=== PATIENT | female | born 1990 | race Two or more races ===

== ENCOUNTER 2023-03-04 14:27 | Emergency (ER) | payer OTHER ==
[~2023-03-04] VITALS: Ht 152.4 cm; Wt 67.1 kg
[2023-03-04] MEDS ORDERED: PRENATAL + DHA1 EAC1 PO (14:49)
[2023-03-04] MEDS ORDERED: ZOFRAN8 MG PO ×2 (14:49→20:53)
[2023-03-04] MEDS ORDERED: DUI500 PO (20:54)
== END 2023-03-04 21:01 | disposition home or self-care (01) ==
LOC: ER 14:27
DX: O21.9 Vomiting of pregnancy, unspecified (principal); O23.41 Unspecified infection of urinary tract in pregnancy, first trimester; N39.0 Urinary tract infection, site not specified; Z3A.11 11 weeks gestation of pregnancy

== ENCOUNTER 2023-08-08 13:57 | Emergency (ER) | payer OTHER ==
[~2023-08-08] VITALS: Ht 154.9 cm; Wt 71.7 kg
[~2023-08-08 13:57] MED LIST: DUI500 PO; PRENATAL + DHA1 EAC1 PO; ZOFRAN8 MG PO
[2023-08-08] MEDS ORDERED: OBSTETRIX ONE1 EAC1 (15:37)
[2023-08-08 17:50] LABS: HEMATOCRIT 30.3 % (36.0-45.00); HEMOGLOBIN 10.2 g/dL (12.0-15.00); MEAN CELL VOLUME 87.4 fL (80.00-100.00); MEAN CORPUSCULAR HEMOGLOBIN 29.5 pg (27.00-32.0); MEAN CORPUSCULAR HGB CONC 33.8 g/dl (32.0-36.0); PLATELET COUNT 244 K/uL (150-450); RED BLOOD COUNT 3.46 M/uL (4.00-6.00); RED CELL DISTRIBUTION WIDTH 15.1 % (11.5-14.5)
[2023-08-08 17:51] LABS: PH,URINE 6.5 (5.0-8.0); URINE APPEARANCE Clear; URINE BILIRRUBIN Negative (NEGATIVE); URINE BLOOD Trace; URINE COLOR Yellow; URINE GLUCOSE Negative (NEGATIVE); URINE LEUKOCYTE Negative; URINE NITRATE Negative; URINE UROBILINOGEN 0.2 E.U./dl
[2023-08-08 17:56] LABS: URINE BACTERIA 2300.4 uL (0.0-1933); URINE EPITHELIAL CELLS 35.2 uL (0.0-38.8); URINE PROTEIN 300 (NEGATIVE); URINE RBC 17.3 uL (0.0-20.8); URINE WBC 52.2 uL (0.0-23.2)
[2023-08-08] MEDS ORDERED: SALINE NASAL SP88 ML NASAL (20:21)
== END 2023-08-08 20:42 | disposition home or self-care (01) ==
LOC: ER 13:58
PROVIDERS: Nurse Practitioner Family
DX: R11.10 Vomiting, unspecified (principal); J06.9 Acute upper respiratory infection, unspecified; Z20.822 Contact with and (suspected) exposure to COVID-19; Z88.8 Allergy status to other drugs, medicaments and biological substances

== ENCOUNTER 2023-08-12 16:11 | Inpatient (IN) | payer OTHER ==
[~2023-08-12] VITALS: Ht 154.9 cm; Wt 71.7 kg
[~2023-08-12 16:11] MED LIST changes: +OBSTETRIX ONE1 EAC1; +SALINE NASAL SP88 ML NASAL
[2023-08-12] MEDS ORDERED: PRENATAL TABLE1 EAC4 PO (17:06)
[2023-08-12 17:17] LABS: PH,URINE 6.5 (5.0-8.0); URINE APPEARANCE Clear; URINE BILIRRUBIN Negative (NEGATIVE); URINE BLOOD Trace; URINE COLOR Yellow; URINE GLUCOSE Negative (NEGATIVE); URINE LEUKOCYTE Trace; URINE NITRATE Negative
[2023-08-12 17:19] LABS: HEMATOCRIT 28.2 % (36.0-45.00); HEMOGLOBIN 9.4 g/dL (12.0-15.00); MEAN CELL VOLUME 86.9 fL (80.00-100.00); MEAN CORPUSCULAR HEMOGLOBIN 29.1 pg (27.00-32.0); MEAN CORPUSCULAR HGB CONC 33.5 g/dl (32.0-36.0); PLATELET COUNT 299 K/uL (150-450); RED BLOOD COUNT 3.24 M/uL (4.00-6.00); RED CELL DISTRIBUTION WIDTH 15.6 % (11.5-14.5)
[2023-08-12 17:20] LABS: URINE BACTERIA 2090.3 uL (0.0-1933); URINE EPITHELIAL CELLS 35.4 uL (0.0-38.8); URINE RBC 20.2 uL (0.0-20.8); URINE WBC 35.8 uL (0.0-23.2)
[2023-08-12 17:28] LABS: INR < 0.93; PARTIAL THROMBOPLASTIN TIME 34.9 SECONDS (22.0-34.0); PROTHROMBIN TIME 9.5 SECONDS (9.0-11.5)
[2023-08-12 17:32] LABS: ALBUMIN 1.8 gm/dL (3.4-5.0); BILIRUBIN TOTAL 0.19 mg/dL (0.3-1.2); CALCIUM 8.4 mg/dL (8.5-10.1); CREATININE SERUM 0.62 mg/dL (0.55-1.02); GFR 112.27; GLOBULINA 3.6 G/DL (2.4-3.5); POTASSIUM 3.95 mEq/L (3.5-5.1); TOTAL PROTEIN 5.4 gm/dL (6.4-8.2)
[2023-08-12 17:39] LABS: URINE PROTEIN 300 (NEGATIVE)
[2023-08-13 17:13] LABS: HEMATOCRIT 28.4 % (36.0-45.00); HEMOGLOBIN 9.6 g/dL (12.0-15.00); MEAN CELL VOLUME 85.9 fL (80.00-100.00); MEAN CORPUSCULAR HEMOGLOBIN 29.1 pg (27.00-32.0); MEAN CORPUSCULAR HGB CONC 33.9 g/dl (32.0-36.0); PLATELET COUNT 304 K/uL (150-450); RED BLOOD COUNT 3.31 M/uL (4.00-6.00); RED CELL DISTRIBUTION WIDTH 15.5 % (11.5-14.5)
[2023-08-13 17:20] LABS: CREATININE URINE 37.3 MG/DL; URINE PROT QUANT 24HR 245.8 MG/DL
[2023-08-13 17:29] LABS: ALBUMIN 1.6 gm/dL (3.4-5.0); BILIRUBIN TOTAL 0.16 mg/dL (0.3-1.2); CALCIUM 8.5 mg/dL (8.5-10.1); CREATININE SERUM 0.67 mg/dL (0.55-1.02); GFR 102.66; GLOBULINA 3.5 G/DL (2.4-3.5); POTASSIUM 4.28 mEq/L (3.5-5.1); TOTAL PROTEIN 5.1 gm/dL (6.4-8.2)
[2023-08-13 17:48] LABS: URINE PROT QUANT 24 HR 6882.4 MG/24HR (42-225)
[2023-08-13 17:51] LABS: INR < 0.93; PARTIAL THROMBOPLASTIN TIME 35.5 SECONDS (22.0-34.0); PROTHROMBIN TIME 9.5 SECONDS (9.0-11.5)
[2023-08-13 17:57] LABS: FIBRINOGEN 831 mg/dL (187.0-446.0)
[2023-08-13 17:58] LABS: CREATINE CLEARANCE 108.5 ML/MIN (97-137); CREATININE SERUM 0.67 mg/dL (0.6-1.0)
[2023-08-14 17:49] LABS: HEMATOCRIT 30.3 % (36.0-45.00); HEMOGLOBIN 9.9 g/dL (12.0-15.00); MEAN CELL VOLUME 85.9 fL (80.00-100.00); MEAN CORPUSCULAR HEMOGLOBIN 28.1 pg (27.00-32.0); MEAN CORPUSCULAR HGB CONC 32.7 g/dl (32.0-36.0); PLATELET COUNT 395 K/uL (150-450); RED BLOOD COUNT 3.53 M/uL (4.00-6.00); RED CELL DISTRIBUTION WIDTH 16.1 % (11.5-14.5)
[2023-08-14 18:23] LABS: ALBUMIN 1.8 gm/dL (3.4-5.0); BILIRUBIN TOTAL 0.22 mg/dL (0.3-1.2); CALCIUM 7.4 mg/dL (8.5-10.1); CREATININE SERUM 0.58 mg/dL (0.55-1.02); GFR 121.25; POTASSIUM 4.32 mEq/L (3.5-5.1); TOTAL PROTEIN 5.8 gm/dL (6.4-8.2); URIC ACID 4.1 mg/dL (2.5-7.5)
[2023-08-14 18:27] LABS: MAGNESIUM 6.7 mg/dL (1.8-2.4)
[2023-08-14 19:18] LABS: D DIMER 1.15 MG/L
[2023-08-14 19:20] LABS: FIBRINOGEN > 860 mg/dL (187.0-446.0)
[2023-08-15 09:42] LABS: HEMATOCRIT 29.8 % (36.0-45.00); HEMOGLOBIN 9.9 g/dL (12.0-15.00); MEAN CELL VOLUME 86.1 fL (80.00-100.00); MEAN CORPUSCULAR HEMOGLOBIN 28.6 pg (27.00-32.0); MEAN CORPUSCULAR HGB CONC 33.3 g/dl (32.0-36.0); PLATELET COUNT 384 K/uL (150-450); RED BLOOD COUNT 3.46 M/uL (4.00-6.00)
[2023-08-15 10:05] LABS: ALBUMIN 1.8 gm/dL (3.4-5.0); BILIRUBIN TOTAL 0.18 mg/dL (0.3-1.2); CALCIUM 7.7 mg/dL (8.5-10.1); CREATININE SERUM 0.82 mg/dL (0.55-1.02); GFR 81.31; GLOBULINA 3.9 G/DL (2.4-3.5); POTASSIUM 4.36 mEq/L (3.5-5.1); TOTAL PROTEIN 5.7 gm/dL (6.4-8.2); URIC ACID 4.2 mg/dL (2.5-7.5)
[2023-08-16 06:22] LABS: INR < 0.93; PARTIAL THROMBOPLASTIN TIME 29.4 SECONDS (22.0-34.0)
[2023-08-16 06:26] LABS: HEMATOCRIT 26.6 % (36.0-45.00); MEAN CELL VOLUME 87.6 fL (80.00-100.00); MEAN CORPUSCULAR HEMOGLOBIN 29.6 pg (27.00-32.0); MEAN CORPUSCULAR HGB CONC 33.8 g/dl (32.0-36.0); PLATELET COUNT 380 K/uL (150-450); RED BLOOD COUNT 3.04 M/uL (4.00-6.00)
[2023-08-16 06:49] LABS: ALBUMIN 1.5 gm/dL (3.4-5.0); BILIRUBIN TOTAL 0.18 mg/dL (0.3-1.2); CALCIUM 7.7 mg/dL (8.5-10.1); CREATININE SERUM 0.6 mg/dL (0.55-1.02); GFR 116.6; GLOBULINA 3.4 G/DL (2.4-3.5); POTASSIUM 4.94 mEq/L (3.5-5.1); TOTAL PROTEIN 4.9 gm/dL (6.4-8.2)
[2023-08-16 12:21] LABS: HEMATOCRIT 25.2 % (36.0-45.00); MEAN CELL VOLUME 87.2 fL (80.00-100.00); MEAN CORPUSCULAR HGB CONC 33.3 g/dl (32.0-36.0); PLATELET COUNT 415 K/uL (150-450); RED BLOOD COUNT 2.89 M/uL (4.00-6.00)
[2023-08-16 12:32] LABS: HEMOGLOBIN 8.4 g/dL (12.0-15.00)
[2023-08-16 12:42] LABS: INR < 0.93; PARTIAL THROMBOPLASTIN TIME 29.2 SECONDS (22.0-34.0)
[2023-08-16 13:13] LABS: ALBUMIN 1.6 gm/dL (3.4-5.0); BILIRUBIN TOTAL 0.27 mg/dL (0.3-1.2); CALCIUM 7.3 mg/dL (8.5-10.1); CREATININE SERUM 0.67 mg/dL (0.55-1.02); GFR 102.66; GLOBULINA 3.3 G/DL (2.4-3.5); POTASSIUM 4.72 mEq/L (3.5-5.1); TOTAL PROTEIN 4.9 gm/dL (6.4-8.2)
[2023-08-16 13:21] LABS: MAGNESIUM 5.4 mg/dL (1.8-2.4)
[2023-08-16 18:17] LABS: MEAN CELL VOLUME 87.1 fL (80.00-100.00); MEAN CORPUSCULAR HGB CONC 33.9 g/dl (32.0-36.0); PLATELET COUNT 409 K/uL (150-450); RED BLOOD COUNT 2.51 M/uL (4.00-6.00)
[2023-08-16 18:18] LABS: MEAN CORPUSCULAR HEMOGLOBIN 29.4 pg (27.00-32.0)
[2023-08-16 18:19] LABS: HEMATOCRIT 21.8 % (36.0-45.00)
[2023-08-16 18:20] LABS: HEMOGLOBIN 7.4 g/dL (12.0-15.00)
[2023-08-16 18:42] LABS: INR < 0.93; PARTIAL THROMBOPLASTIN TIME 29.8 SECONDS (22.0-34.0); PROTHROMBIN TIME 8.9 SECONDS (9.0-11.5)
[2023-08-16 18:47] LABS: ALBUMIN 1.5 gm/dL (3.4-5.0); BILIRUBIN TOTAL 0.22 mg/dL (0.3-1.2); CALCIUM 6.8 mg/dL (8.5-10.1); CREATININE SERUM 0.61 mg/dL (0.55-1.02); GFR 114.4; GLOBULINA 3.2 G/DL (2.4-3.5); POTASSIUM 4.94 mEq/L (3.5-5.1); TOTAL PROTEIN 4.7 gm/dL (6.4-8.2)
[2023-08-16 18:57] LABS: MAGNESIUM 5.2 mg/dL (1.8-2.4)
[2023-08-17 07:40] LABS: INR < 0.93; PARTIAL THROMBOPLASTIN TIME 22.1 SECONDS (22.0-34.0); PROTHROMBIN TIME 9.5 SECONDS (9.0-11.5)
[2023-08-17 07:45] LABS: ALBUMIN 1.7 gm/dL (3.4-5.0); BILIRUBIN TOTAL 0.26 mg/dL (0.3-1.2); CALCIUM 7.4 mg/dL (8.5-10.1); CREATININE SERUM 0.65 mg/dL (0.55-1.02); GFR 106.31; GLOBULINA 3.3 G/DL (2.4-3.5); POTASSIUM 4.49 mEq/L (3.5-5.1)
[2023-08-17 08:16] LABS: HEMATOCRIT 29.9 % (36.0-45.00); HEMOGLOBIN 10.4 g/dL (12.0-15.00); MEAN CELL VOLUME 86.4 fL (80.00-100.00); MEAN CORPUSCULAR HGB CONC 34.8 g/dl (32.0-36.0); PLATELET COUNT 330 K/uL (150-450); RED BLOOD COUNT 3.46 M/uL (4.00-6.00)
[2023-08-18 05:56] LABS: HEMATOCRIT 25.5 % (36.0-45.00); MEAN CELL VOLUME 86.6 fL (80.00-100.00); MEAN CORPUSCULAR HEMOGLOBIN 30.2 pg (27.00-32.0); MEAN CORPUSCULAR HGB CONC 34.9 g/dl (32.0-36.0); PLATELET COUNT 321 K/uL (150-450); RED BLOOD COUNT 2.94 M/uL (4.00-6.00); RED CELL DISTRIBUTION WIDTH 15.2 % (11.5-14.5)
[2023-08-18 06:08] LABS: HEMOGLOBIN 8.9 g/dL (12.0-15.00)
[2023-08-18 06:42] LABS: ALBUMIN 1.6 gm/dL (3.4-5.0); BILIRUBIN TOTAL 0.18 mg/dL (0.3-1.2); CREATININE SERUM 0.63 mg/dL (0.55-1.02); GFR 110.22; POTASSIUM 4.07 mEq/L (3.5-5.1); TOTAL PROTEIN 4.6 gm/dL (6.4-8.2)
[2023-08-19 05:05] LABS: HEMATOCRIT 27.4 % (36.0-45.00); HEMOGLOBIN 9.3 g/dL (12.0-15.00); MEAN CELL VOLUME 87.9 fL (80.00-100.00); MEAN CORPUSCULAR HGB CONC 34.1 g/dl (32.0-36.0); PLATELET COUNT 368 K/uL (150-450); RED BLOOD COUNT 3.12 M/uL (4.00-6.00); RED CELL DISTRIBUTION WIDTH 15.3 % (11.5-14.5)
[2023-08-19 05:31] LABS: ALBUMIN 1.9 gm/dL (3.4-5.0); BILIRUBIN TOTAL 0.21 mg/dL (0.3-1.2); CALCIUM 8.4 mg/dL (8.5-10.1); CREATININE SERUM 0.56 mg/dL (0.55-1.02); GFR 126.26; GLOBULINA 3.4 G/DL (2.4-3.5); POTASSIUM 4.46 mEq/L (3.5-5.1); TOTAL PROTEIN 5.3 gm/dL (6.4-8.2)
[2023-08-20] MEDS ORDERED: LABETALOL HCL200 MG PO (15:11)
[2023-08-20] MEDS ORDERED: ANUSOL-HC30 G2 TOP (15:11)
== END 2023-08-19 15:06 | disposition home or self-care (01) | DRG 788 ==
LOC: LDR 16:11 → O/R 08-15 19:14 → LDR 08-15 22:45 → OB/GYN 08-17 14:37
PROVIDERS: Obstetrics & Gynecology; ADMIT Specialist; ATTEND Specialist
PROC: 4A1HXCZ Monitoring of Products of Conception, Cardiac Rate, External Approach (ICD-10-PCS; 2023-08-12)
PROC: BY4FZZZ Ultrasonography of Third Trimester, Single Fetus (ICD-10-PCS; 2023-08-15)
PROC: 10D00Z1 Extraction of Products of Conception, Low, Open Approach (ICD-10-PCS; principal; 2023-08-15 17:00)
DX: O14.14 Severe pre-eclampsia complicating childbirth (principal); O60.14X0 Preterm labor third trimester with preterm delivery third trimester, not applicable or unspecified; O36.8130 Decreased fetal movements, third trimester, not applicable or unspecified; O26.843 Uterine size-date discrepancy, third trimester; Z3A.34 34 weeks gestation of pregnancy; Z37.0 Single live birth; Z20.822 Contact with and (suspected) exposure to COVID-19

== ENCOUNTER 2023-08-20 12:04 | Emergency (ER) | payer OTHER ==
[~2023-08-20] VITALS: Ht 157.5 cm; Wt 72.6 kg
[~2023-08-20 12:04] MED LIST changes: +PRENATAL TABLE1 EAC4 PO
[2023-08-20 13:13] LABS: URINE APPEARANCE Cloudy; URINE BILIRRUBIN Negative (NEGATIVE); URINE BLOOD Large; URINE COLOR Red; URINE GLUCOSE Negative (NEGATIVE); URINE LEUKOCYTE Small; URINE NITRATE Negative; URINE UROBILINOGEN 0.2 E.U./dl
[2023-08-20 13:13] LABS: HEMATOCRIT 29.6 % (36.0-45.00); MEAN CELL VOLUME 88.8 fL (80.00-100.00); MEAN CORPUSCULAR HEMOGLOBIN 29.9 pg (27.00-32.0); MEAN CORPUSCULAR HGB CONC 33.7 g/dl (32.0-36.0); PLATELET COUNT 460 K/uL (150-450); RED BLOOD COUNT 3.33 M/uL (4.00-6.00); RED CELL DISTRIBUTION WIDTH 15.7 % (11.5-14.5)
[2023-08-20 13:14] LABS: URINE BACTERIA 230.5 uL (0.0-1933); URINE RBC 8162.7 uL (0.0-20.8)
[2023-08-20 13:17] LABS: URINE PROTEIN 300 (NEGATIVE)
[2023-08-20 13:25] LABS: INR < 0.93; PARTIAL THROMBOPLASTIN TIME 28.2 SECONDS (22.0-34.0); PROTHROMBIN TIME 9.4 SECONDS (9.0-11.5)
[2023-08-20 13:30] LABS: ALT/SGPT 81 U/L (12-78); ANION GAP 9 (10.0-20.0); AST/SGOT 60 U/L (15-37); BILIRUBIN TOTAL 0.26 mg/dL (0.3-1.2); BILIRUBIN,CONJUGATED < 0.10 mg/dL (0.0-0.2); BILIRUBIN,UNCONJUGATED 0.16 mg/dL (0.0-0.6); BLOOD UREA NITROGEN 12 mg/dL (7-18); BUN CREA RATIO 21 (7.0-25.0); CALCIUM 9.1 mg/dL (8.5-10.1); CARBON DIOXIDE 28 mEq/L (21-32); CHLORIDE 105 mmol/L (98-107); CREATININE SERUM 0.58 mg/dL (0.55-1.02); GFR 121.25; GLUCOSE FASTING 99 mg/dL (65-100); OSMOLALITY SERUM 274 MOSM/KG (275-295); POTASSIUM 4.59 mEq/L (3.5-5.1); SODIUM 137 mmol/L (136-145)
[2023-08-20] MEDS ORDERED: LABETALOL HCL200 MG PO (15:11)
[2023-08-20] MEDS ORDERED: ANUSOL-HC30 G2 TOP (15:11)
== END 2023-08-20 17:53 | disposition home or self-care (01) ==
LOC: ER 12:04
PROVIDERS: General Practice
DX: O11.5 Pre-existing hypertension with pre-eclampsia, complicating the puerperium (principal); Z88.8 Allergy status to other drugs, medicaments and biological substances